=== PATIENT | female | born 1955 | race Caucasian/White ===

== ENCOUNTER 2025-04-06 08:21 | Day surgery (SDC) | payer MEDICARE, BC ==
[2025-04-06] MEDS ORDERED: Propofol 200 MG/20 ML SDV ONE ×2 (08:23→12:47)
[2025-04-06] MEDS ORDERED: fentaNYL 100 MCG/2 ML SDV ONE (08:24)
[2025-04-06] MEDS ORDERED: Midazolam 1 MG/ML 2 ML SDV ONE (08:24)
[2025-04-06 08:44] LABS: BASOPHILS ABSOLUTE AUTO 0.03 K/uL (0.00-0.10); BASOPHILS PERCENT AUTO 0.6 % (0.1-1.3); EOSINOPHILS ABSOLUTE AUTO 0.06 K/uL (0.00-0.40); EOSINOPHILS PERCENT AUTO 1.2 % (0.0-5.4); HEMATOCRIT 43.1 % (34.3-46.0); HEMOGLOBIN 14.2 g/dL (11.2-15.5); IMMATURE GRAN PERCENT AUTO 0.2 % (0.0-0.7); LYMPHOCYTES ABSOLUTE AUTO 1.38 K/uL (0.8-3.3); LYMPHOCYTES PERCENT AUTO 27.7 % (11.4-47.7); MEAN CORPUSCULAR HEMOGLOBIN 31.6 pg (31.6-35.5); MEAN CORPUSCULAR HGB CONC 32.9 g/dL (31.6-35.5); MEAN CORPUSCULAR VOLUME 95.8 fL (81.4-99.0); NEUTROPHILS ABSOLUTE AUTO 3.11 K/uL (1.0-7.6); NEUTROPHILS PERCENT AUTO 62.3 % (40.0-78.1); PLATELET COUNT,PLT 274 K/uL (130-375)
[2025-04-06 08:49] LABS: IMMATURE GRAN ABSOLUTE AUTO 0.01 K/uL (0.00-0.23)
[2025-04-06 09:05] LABS: A/G RATIO 0.9 (1.2-2.2); ALANINE AMINOTRANSFERASE,ALT 22 U/L (12-78); ALBUMIN 3.4 g/dL (3.4-5.0); ALKALINE PHOSPHATASE 76 U/L (46-116); ANION GAP 9.7 mmol/L (5.0-14.0); ASPARTATE AMNIOTRANSFERASE,AST 17 U/L (15-37); BILIRUBIN TOTAL 0.5 mg/dL (0.2-1.0); BLOOD UREA NITROGEN,BUN 10 mg/dL (7-18); CALCIUM 9.4 mg/dL (8.5-10.1); CARBON DIOXIDE,CO2 28 mmol/L (21-32); CHLORIDE,CL 104 mmol/L (100-108); CREATININE 0.7 mg/dL (0.6-1.0); ESTIMATED GFR 92 mL/min (>60); GLUCOSE RANDOM 94 mg/dL (74-106); POTASSIUM,K 4.2 mmol/L (3.6-5.2); SODIUM,NA 142 mmol/L (140-148)
[2025-04-06] MEDS ORDERED: oxyCODONE 5 MG Tab PO PRN (09:23)
[2025-04-06] MEDS ORDERED: Magnesium Hydroxide 400 MG/5 ML Susp 30 ML Cup PO PRN (09:23)
[2025-04-06] MEDS ORDERED: Ondansetron 4 MG/2 ML SDV IVPUSH PRN (09:23)
[2025-04-06] MEDS ORDERED: Sodium Chloride 0.9% 1,000 ML IV SCH (09:30)
[2025-04-06] MEDS: Nozin Nasal Sanitizer NASBOTH ONE (09:32)
[2025-04-06] MEDS: Lactated Ringers 1,000 ML IV SCH (10:14)
[2025-04-06] MEDS: ceFAZolin 2 GM in Premix Bag 1 BAG IV ONE (11:47)
[2025-04-06] MEDS ORDERED: Sodium Chloride 0.9% 10 ML ONE (12:35)
[2025-04-06] MEDS ORDERED: Phenylephrine 1% 10 MG/ML SDV ONE (12:35)
[2025-04-06] MEDS: Bupivacaine 0.5% 50 ML MDV ONE (12:37)
[2025-04-06] MEDS: Acetaminophen 325 MG Tab PO SCH (15:53)
[2025-04-06] MEDS: Ketorolac 30 MG/ML SDV IVPUSH PRN (15:53)
[2025-04-06] MEDS: oxyCODONE 5 MG Tab PO PRN (17:45)
[2025-04-06] MEDS: ceFAZolin 2 GM in Premix Bag 1 BAG IV SCH (17:47)
[2025-04-06] MEDS: Latanoprost 0.005% Ophth Soln 2.5 ML Bottle EYEBOTH SCH (21:20)
[2025-04-06] MEDS: Nozin Nasal Sanitizer NASBOTH SCH (21:20)
[2025-04-06] MEDS: Morphine 2 MG/ML SYRINGE IVPUSH PRN (22:49)
[2025-04-07] MEDS: Docusate Sodium 100 MG Cap PO PRN (04:20)
[2025-04-07] MEDS: Pantoprazole 40 MG Tab.CR PO SCH (08:04)
[2025-04-07] MEDS: Aspirin 325 MG Tab.EC PO SCH (08:04)
[2025-04-07] MEDS: Cholecalciferol (Vitamin D3) 25 MCG Tab PO SCH (08:04)
[2025-04-07] MEDS: Raloxifene 60 MG Tab PO SCH (08:04)
[2025-04-07] MEDS: Calcium Carbonate 500 MG Tab.Chew PO SCH (08:04)
[2025-04-12] MEDS ORDERED: Alendronate 70 MG Tab PO SCH (07:30)
== END 2025-04-07 14:54 | disposition home or self-care (01) ==
LOC: JP.SDS 08:21 → JP.MS 09:23 → JP.SDS 04-07 14:54
PROVIDERS: ATTEND Specialist
DX: M17.12 Unilateral primary osteoarthritis, left knee (principal); K21.9 Gastro-esophageal reflux disease without esophagitis
CPT/HCPCS: 27447; 36415; 73560; 80053; 85025; 93005; 97110; 97161; 97165; A9270; C1713; C1776; J0665; J0690; J1885; J2250; J2270; J2371; J2704; J3010; J7120; 01402-QZ

== ENCOUNTER 2025-09-26 08:55 | Day surgery (SDC) | payer MEDICARE, BC ==
[~2025-09-26 08:55] MED LIST: Tranexamic Acid 800 MG in Sodium Chloride 0.9% 50 ML IV ONE
[2025-09-26 09:22] LABS: PLATELET COUNT,PLT 279.0 K/uL (130-375); RED BLOOD CELL COUNT 4.42 M/uL (3.77-5.24); WHITE BLOOD CELL COUNT,WBC 5.3 K/uL (3.2-11.0)
[2025-09-26] MEDS ORDERED: Midazolam 1 MG/ML 2 ML SDV ONE (09:30)
[2025-09-26] MEDS ORDERED: Propofol 200 MG/20 ML SDV ONE ×2 (09:30→13:29)
[2025-09-26] MEDS ORDERED: fentaNYL 100 MCG/2 ML SDV ONE (09:30)
[2025-09-26] MEDS: Lactated Ringers 1,000 ML IV SCH (09:33)
[2025-09-26 09:37] LABS: BLOOD UREA NITROGEN,BUN 11.0 mg/dL (7-18); CARBON DIOXIDE,CO2 30.0 mmol/L (21-32); CHLORIDE,CL 103.0 mmol/L (100-108); CREATININE 0.7 mg/dL (0.6-1.0); EST CRCL DRUG DOSING (CG) 63.65 mL/min; ESTIMATED GFR 92.0 mL/min (>60); GLUCOSE RANDOM 91.0 mg/dL (74-106); POTASSIUM,K 3.8 mmol/L (3.6-5.2); SODIUM,NA 139.0 mmol/L (140-148)
[2025-09-26] MEDS: Nozin Nasal Sanitizer NASBOTH SCH ×2 (09:58→20:41)
[2025-09-26] MEDS: Tranexamic Acid 800 MG in Sodium Chloride 0.9% 50 ML IV ONE (11:02)
[2025-09-26] MEDS ORDERED: Ondansetron 4 MG/2 ML SDV IVPUSH PRN (12:06)
[2025-09-26] MEDS ORDERED: Magnesium Hydroxide 400 MG/5 ML Susp 30 ML Cup PO PRN (12:06)
[2025-09-26] MEDS ORDERED: ePHEDrine 50 MG/ML SDV ONE (12:57)
[2025-09-26] MEDS: Ketorolac 15 MG/ML SDV IVPUSH PRN (17:41)
[2025-09-27] MEDS: Cholecalciferol (Vitamin D3) 25 MCG Tab PO SCH (09:19)
[2025-09-27] MEDS: Aspirin 325 MG Tab.EC PO SCH (09:22)
== END 2025-09-27 15:05 | disposition home health service (06) ==
LOC: JP.SDS 08:55 → JP.MS 12:06 → JP.SDS 09-27 15:05
PROVIDERS: ATTEND Specialist
DX: M17.11 Unilateral primary osteoarthritis, right knee (principal)
CPT/HCPCS: 36415; 73560; 80048; 85027; 97110; 97161; A9270; C1713; C1776; J0690; J2250; J2704; J3010; J7030; J7120; J0665; J1885